=== PATIENT | male | born 1930 | race Caucasian/White ===

== ENCOUNTER 2018-07-14 08:12 | Observation (INO) ==
--- NOTE | 2018-07-14 09:04 | ED ---
HPI General Chief Complaint: Chest Pain Stated Complaint: Chest pain Time Seen by Provider: 07/14/18 08:37 Source: patient, EMS, RN notes reviewed and old records reviewed Mode of arrival: EMS Limitations: other (poor historian) History of Present Illness HPI narrative: 88 y/o male by report noted chest pain this morning. Report was he was panicking when his oxygen was off and so they replaced this and this improved his pain. Patient does not recall this event this morning. He denies any pain currently. He states he is feeling fine. History is limited from patient MD complaint: chest pain Complete Quality Measures for STEMI Alert Patients STEMI Alert: No Related Data Allergies Allergy/AdvReac Type Severity Reaction Status Date / Time No Known Allergies Allergy Unverified 07/14/18 08:18 Review of Systems ROS Unobtainable ROS Unobtainable: other (Very poor historian) [facility] Medical History Medical History Afib (Acute) CHF (congestive heart failure) (Acute) COPD (chronic obstructive pulmonary disease) (Acute) Diabetes (Acute) ESBL (extended spectrum beta-lactamase) producing bacteria infection (Acute) HTN (hypertension) (Acute) Surgical History Surgical History Heart valve replaced (Acute) Social History Social History Second Hand Smoke Exposure: No Smoking Status: Never smoker Tobacco Type: Cigarettes How Often Do You Have a Drink Containing Alcohol: Never Recent Travel in [facility] within the Last 8 Weeks: No Recent Out of Country Travel within the Last 8 Weeks: No Immunization History Tetanus Immunization: Unsure Hx Influenza Vaccine This Season: Yes Exam Narrative Exam Narrative: GENERAL: 88-year-old male in no apparent distress SKIN: Focused skin assessment warm/dry. HEAD: Atraumatic. Normocephalic. EYES: Pupils equal and round. No scleral icterus. No injection or drainage. ENT: No nasal bleeding or discharge. Mucous membranes pink and moist. NECK: Trachea midline. CARDIOVASCULAR: Regular rate and rhythm. RESPIRATORY: No accessory muscle use. Clear to auscultation. Breath sounds equal bilaterally. GASTROINTESTINAL: Abdomen soft, non-tender, nondistended. MUSCULOSKELETAL: No obvious deformities. No clubbing. No cyanosis. NEUROLOGICAL: Awake and alert to name and location. Moves all extremities. Normal speech. Course Reevaluation(s) Reevaluation #1: On paperwork patient is his medical decision maker. Updated about elevated troponin and wanting to stay in the hospital for further care. Given aspirin still pain-free Consultations Consultation #1: Dr. cisneros agrees to admission Initial Documented Vital Signs Temperature 98.2 F 07/14/18 08:19 Pulse Rate 57 L 07/14/18 08:19 Respiratory Rate 18 07/14/18 08:19 Blood Pressure 146/67 H 07/14/18 08:19 Last Documented Vital Signs Temperature 98.2 F 07/14/18 08:19 Pulse Rate 54 L 07/14/18 09:10 Respiratory Rate 16 07/14/18 09:10 Blood Pressure 146/67 H 07/14/18 09:10 Pulse Oximetry 98 07/14/18 08:49 Medical Decision Making MDM Narrative Medical decision making narrative: Given extensive risk factors will check workup and reevaluate. Patient currently pain-free with possible brief episode Medical Screen Exam Complete: Yes Emergency Medical Condition: Yes Differential Diagnosis Differential Diagnosis: Gastritis, anxiety, atypical cardiac Lab Data Lab results reviewed: Yes I reviewed the patient's lab results. Result diagrams: 07/14/18 09:04 07/14/18 09:04 Lab Results 07/14/18 07/14/18 07/14/18 Range/Units 09:04 09:04 09:04 WBC 6.0 (4.0-11.0) th/mm3 RBC 4.25 L (4.50-5.90) mil/mm3 Hgb 12.3 L (13.0-17.0) gm/dL Hct 37.2 L (39.0-51.0) % MCV 87.5 (80.0-100.0) fL MCH 28.9 (27.0-34.0) pg MCHC 33.1 (32.0-36.0) % RDW 15.6 (11.6-17.2) % Plt Count 210 (150-450) th/mm3 MPV 8.4 (7.0-11.0) fL Neut % (Auto) 66.0 (16.0-70.0) % Lymph % (Auto) 21.3 (9.0-44.0) % [place] % (Auto) 8.2 H (0.0-8.0) % Eos % (Auto) 3.9 (0.0-4.0) % Baso % (Auto) 0.6 (0.0-2.0) % Neut # (Auto) 4.0 (1.8-7.7) th/mm3 Lymph # (Auto) 1.3 (1.0-4.8) th/mm3 [place] # (Auto) 0.5 (0.0-0.9) th/mm3 Eos # (Auto) 0.2 (0.0-0.4) th/mm3 Baso # (Auto) 0.0 (0.0-0.2) th/mm3 WBC Differential . Differential Comment Auto diff final PT 11.1 (9.8-11.6) sec INR 1.1 Ratio APTT 24.0 L (24.3-30.1) sec Sodium (136-145) meq/L Potassium (3.5-5.1) meq/L Chloride (98-107) meq/L Carbon Dioxide (21.0-32.0) meq/L Anion Gap (5-15) meq/L BUN (7-18) mg/dL Creatinine (0.60-1.30) mg/dL Estimated GFR (>89) mL/min Random Glucose (74-106) mg/dL Calcium (8.5-10.1) mg/dL Magnesium (1.5-2.5) mg/dL Total Bilirubin (0.2-1.0) mg/dL AST (15-37) U/L ALT (12-78) U/L Alkaline Phosphatase (45-117) U/L Total Creatine Kinase (39-308) U/L Troponin I (0.02-0.05) ng/mL B-Natriuretic Peptide 114 H (0-100) pg/mL Total Protein (6.4-8.2) g/dL Albumin (3.4-5.0) g/dL 07/14/18 Range/Units 09:04 WBC (4.0-11.0) th/mm3 RBC (4.50-5.90) mil/mm3 Hgb (13.0-17.0) gm/dL Hct (39.0-51.0) % MCV (80.0-100.0) fL MCH (27.0-34.0) pg MCHC (32.0-36.0) % RDW (11.6-17.2) % Plt Count (150-450) th/mm3 MPV (7.0-11.0) fL Neut % (Auto) (16.0-70.0) % Lymph % (Auto) (9.0-44.0) % [place] % (Auto) (0.0-8.0) % Eos % (Auto) (0.0-4.0) % Baso % (Auto) (0.0-2.0) % Neut # (Auto) (1.8-7.7) th/mm3 Lymph # (Auto) (1.0-4.8) th/mm3 [place] # (Auto) (0.0-0.9) th/mm3 Eos # (Auto) (0.0-0.4) th/mm3 Baso # (Auto) (0.0-0.2) th/mm3 WBC Differential Differential Comment PT (9.8-11.6) sec INR Ratio APTT (24.3-30.1) sec Sodium 143 (136-145) meq/L Potassium 4.3 (3.5-5.1) meq/L Chloride 106 (98-107) meq/L Carbon Dioxide 28.9 (21.0-32.0) meq/L Anion Gap 8 (5-15) meq/L BUN 24 H (7-18) mg/dL Creatinine 1.49 H (0.60-1.30) mg/dL Estimated GFR 45 L (>89) mL/min Random Glucose 118 H (74-106) mg/dL Calcium 9.2 (8.5-10.1) mg/dL Magnesium 2.1 (1.5-2.5) mg/dL Total Bilirubin 0.8 (0.2-1.0) mg/dL AST 19 (15-37) U/L ALT 17 (12-78) U/L Alkaline Phosphatase 66 (45-117) U/L Total Creatine Kinase 57 (39-308) U/L Troponin I 0.13 H (0.02-0.05) ng/mL B-Natriuretic Peptide (0-100) pg/mL Total Protein 7.3 (6.4-8.2) g/dL Albumin 3.4 (3.4-5.0) g/dL Imaging Data Attestation: I personally reviewed and interpreted this imaging study as follows : Radiologist's impression: Chest X-Ray 07/14/18 08:38 CONCLUSION: There lungs. Discharge Plan Discharge Disposition Patient Disposition: 30 Still Patient Discharge Condition Condition: Stable Discharge Details Diagnosis: Chest pain, Elevated troponin Physicians Team ED Provider: Vangie Robbins Primary Care Provider: Primary Care Ana Mi,No Discharge Instructions Patient Printed Instructions: Chest Pain (ED) Status ED Status: Admitted Observation Patient
--- NOTE | 2018-07-14 09:20 | XR ---
EXAM DATE: 07/14/2018 9:17 AM EDT AGE/SEX: 88 years / Male INDICATIONS: Chest pain starting today CLINICAL DATA: This is the patient's initial encounter. Patient reports that signs and symptoms have been present for 1 day and indicates a pain score of 8/10. MEDICAL/SURGICAL HISTORY: Cardiovascular disease. CABG. Heart valve repair COMPARISON: No prior exams available for comparison. FINDINGS: Cardiomegaly, aortic calcification, sternotomy wires and clips and cardiac valve hardware seen. The l ungs are clear. The osseous structures are intact. CONCLUSION: There lungs. Electronically signed by: Everette Sellers MD 07/14/2018 9:18 AM EDT
[2018-07-14 09:44] LABS: Baso % (Auto) 0.6 % (0.0-2.0); Eos # (Auto) 0.2 th/mm3 (0.0-0.4); Eos % (Auto) 3.9 % (0.0-4.0); Hematocrit 37.2 % (39.0-51.0); Hemoglobin 12.3 gm/dL (13.0-17.0); Lymph # (Auto) 1.3 th/mm3 (1.0-4.8); Lymph % (Auto) 21.3 % (9.0-44.0); Mean Corpuscular HGB Conc 33.1 % (32.0-36.0); Mean Corpuscular Hemoglobin 28.9 pg (27.0-34.0); Mean Corpuscular Volume 87.5 fL (80.0-100.0); Mean Platelet Volume 8.4 fL (7.0-11.0); Mono # (Auto) 0.5 th/mm3 (0.0-0.9); Mono % (Auto) 8.2 % (0.0-8.0); Platelet Count 210 th/mm3 (150-450); Red Blood Count 4.25 mil/mm3 (4.50-5.90); Red Cell Distribution Width 15.6 % (11.6-17.2)
[2018-07-14 09:47] LABS: INR 1.1 Ratio; Prothrombin Time 11.1 sec (9.8-11.6)
[2018-07-14 09:57] LABS: Albumin 3.4 g/dL (3.4-5.0); Anion Gap 8 meq/L (5-15); Aspartate Aminotransferase 19 U/L (15-37); Blood Urea Nitrogen 24 mg/dL (7-18); Calcium 9.2 mg/dL (8.5-10.1); Carbon Dioxide 28.9 meq/L (21.0-32.0); Chloride 106 meq/L (98-107); Glomerular Filtration Rate 45 mL/min (>89); Glucose,Random 118 mg/dL (74-106); Magnesium 2.1 mg/dL (1.5-2.5); Potassium 4.3 meq/L (3.5-5.1); Sodium 143 meq/L (136-145)
[2018-07-14 09:59] LABS: Alanine Aminotransferase 17 U/L (12-78)
[2018-07-14 10:02] LABS: Alkaline Phosphatase 66 U/L (45-117); Creatine Kinase 57 U/L (39-308); Total Protein 7.3 g/dL (6.4-8.2); Troponin I 0.13 ng/mL (0.02-0.05)
[2018-07-14] MEDS ORDERED: Aspirin 325 MG Tablet PO ONE (10:11)
[2018-07-14 11:25] LABS: Bilirubin,Urine Negative (Negative); Clarity,Urine Clear (Clear); Color,Urine Yellow (Yellw/Straw); Glucose,Urine (UA) Negative (Negative); Hyaline Casts,Urine 1 /lpf (0-3); Leukocyte Esterase,Urine Negative (Negative); Mucus,Urine Few /lpf (Occasional); Nitrite,Urine Negative (Negative); Specific Gravity,Urine 1.019 (1.002-1.035)
[2018-07-14] MEDS ORDERED: Acetaminophen 325 MG Tablet PO PRN (13:08)
[2018-07-14] MEDS ORDERED: Bisacodyl 10 MG Supp RECTAL PRN (13:08)
[2018-07-14 14:46] LABS: Troponin I 0.09 ng/mL (0.02-0.05)
--- NOTE | 2018-07-14 15:20 | P.HPIM ---
History of Present Illness Primary Care Physician: No Primary Care Physician History of Present Illness: This is an 88-year-old male with history of hypertension, COPD, diabetes mellitus, atrial fibrillation congestive heart failure presenting to the hospital with chest pain. Per patient, he woke up this morning, having moderate substernal chest pain, described as pressure-like, nonradiating associated with shortness of breath but no nausea, vomiting, or blurring of vision. At this point, chest pain has resolved completely. Patient is a [facility] of a [facility]ci. According to him, he panicked because his oxygen was off. Putting the oxygen back helped his chest pain. Family history: Father had heart problems Review of Systems All other pertinent systems were reviewed and are negative. [facility] - History History Provided By: Patient - Medical History Medical History: Medical History (Last Reviewed 07/14/18 @ 09:08 by Vangie Robbins MD) Afib CHF (congestive heart failure) COPD (chronic obstructive pulmonary disease) Diabetes ESBL (extended spectrum beta-lactamase) producing bacteria infection HTN (hypertension) - Surgical History Surgical History: Surgical History (Last Reviewed 07/14/18 @ 09:08 by Vangie Robbins MD) Heart valve replaced - Tobacco History Second Hand Smoke Exposure: No Tobacco Use In Past 30 Days: No Smoking Status: Never smoker Tobacco Type: Cigarettes - Alcohol History How Often Do You Have a Drink Containing Alcohol: Never - Substance Use History Substance History: No History of Abuse - Travel History Recent Travel in the [place] Within the Last 8 Weeks: No Recent Travel Out of the Country Within the Last 8 Weeks: No - Immunization History Tetanus Immunization: Unsure Hx Influenza Vaccine This Season: Yes Medications and Allergies Active Medications: Active Medications Acetaminophen (Tylenol) 650 mg PO Q4H PRN PRN Reason: Temp > 100.4 Al Hydroxide/Mg Hydroxide (Milk Of Magnesia Liq) 30 ml PO Q12H PRN PRN Reason: Mild Constipation Aspirin (Aspirin) 325 mg PO DAILY GARETH Bisacodyl (Dulcolax Supp) 10 mg RECTAL DAILY PRN PRN Reason: SEVERE CONSITIPATION Lactulose (Lactulose Liq) 30 ml PO DAILY PRN PRN Reason: SEVERE CONSITIPATION Ondansetron HCl (Zofran Inj) 4 mg IV.PUSH Q6H PRN PRN Reason: NAUSEA OR VOMITING Sennosides (Senokot) 17.2 mg PO Q12H PRN PRN Reason: Moderate Constipation Sodium Chloride (Ns Flush) 2 ml IV.FLUSH UNSCH PRN PRN Reason: FLUSH AFTER USING IV ACCESS Allergies Allergy/AdvReac Type Severity Reaction Status Date / Time No Known Allergies Allergy Unverified 07/14/18 08:18 Exam Vital signs: Vital Signs 07/14/18 08:19 07/14/18 08:49 07/14/18 09:10 Temperature 98.2 F Pulse Rate 57 L 54 L Respiratory Rate 18 16 Blood Pressure 146/67 H 146/67 H Pulse Oximetry 98 07/14/18 14:39 Temperature 97.5 F L Pulse Rate 52 L Respiratory Rate 17 Blood Pressure 115/78 Pulse Oximetry 98 Intake & Output 07/13/18 07/14/18 07/14/18 18:59 06:59 18:59 Weight 96.162 kg Narrative: GENERAL: Not in acute distress HEAD: Atraumatic. Normocephalic. EYES: PERRL, full EOMs, no jaundice, nonicteric, pink conjunctivae without injection, moist mucosa ENT: Nose without bleeding, purulent drainage. NECK: Trachea midline, no mass, no obvious thyromegaly. CARDIOVASCULAR: Regular rate and rhythm without murmurs, gallops, or rubs. RESPIRATORY: Clear to auscultation with normal respiratory effort. Breath sounds equal bilaterally. GASTROINTESTINAL: Abdomen soft, normal bowel sounds, non-tender, nondistended. MUSCULOSKELETAL: Extremities without clubbing, cyanosis, or edema. No joint tenderness. INTEGUMENTARY: Warm and dry, no rash of generalized distribution. NEUROLOGICAL: Awake, alert, oriented 3. No obvious cranial nerve deficits. Moves all 4 extremities, muscle strength testing 5 over. No focal neurologic deficits. Results - Labs CBC & Chem 7: 07/14/18 09:04 07/14/18 09:04 Labs: Short CBC 07/14/18 Range/Units 09:04 WBC 6.0 (4.0-11.0) th/mm3 Hgb 12.3 L (13.0-17.0) gm/dL Hct 37.2 L (39.0-51.0) % Plt Count 210 (150-450) th/mm3 BMP 07/14/18 09:04 Sodium 143 Potassium 4.3 Chloride 106 Carbon Dioxide 28.9 BUN 24 H Creatinine 1.49 H Calcium 9.2 Cardiac Enzymes 07/14/18 07/14/18 Range/Units 09:04 14:02 Total Creatine Kinase 57 68 (39-308) U/L Troponin I 0.13 H 0.09 H (0.02-0.05) ng/mL Liver Function 07/14/18 Range/Units 09:04 Total Bilirubin 0.8 (0.2-1.0) mg/dL AST 19 (15-37) U/L ALT 17 (12-78) U/L Alkaline Phosphatase 66 (45-117) U/L Albumin 3.4 (3.4-5.0) g/dL Urine 07/14/18 Range/Units 10:28 Urine Color Yellow (Yellw/Straw) Urine Clarity Clear (Clear) Urine pH 6.0 (5.0-8.5) Ur Specific [place] 1.019 (1.002-1.035) Urine Protein Negative (Neg-Trace) mg/dL Urine Glucose (UA) Negative (Negative) mg/dL - Imaging Impressions Chest X-Ray 07/14/18 08:38 CONCLUSION: There lungs. Caprini VTE Risk Assessment Caprini VTE Risk Assessment: Moderate/High Risk (score >= 2) Caprini Risk Assessment Model: Point Value = 1 Point Value = 2 Point Value = 3 Point Value = 5 Age 41-60 Minor surgery BMI > 25 kg/m2 Swollen legs Varicose veins or History of unexplained or recurrent spontaneous Oral contraceptives or hormone replacement Sepsis (< 1 month) Serious lung disease, including pneumonia (< 1 month) Abnormal pulmonary function Acute myocardial infarction Congestive heart failure (< 1 month) History of inflammatory bowel disease Medical patient at bed rest Age 61-74 Arthroscopic surgery Major open surgery (> 45 min) Laparoscopic surgery (> 45 min) Malignancy Confined to bed (> 72 hours) Immobilizing plaster cast Central venous access Age >= 75 History of VTE Family history of VTE Factor V Leiden Prothrombin [id number] Lupus anticoagulant Anticardiolipin antibodies Elevated serum homocysteine Heparin-induced thrombocytopenia Other congenital or acquired thrombophilia Stroke (< 1 month) Elective arthroplasty Hip, pelvis, or leg fracture Acute spinal cord injury (< 1 month) Prophylaxis Regimen: Total Risk Factor Score Risk Level Prophylaxis Regimen 0-1 Low Early ambulation 2 Moderate Order ONE of the following: *Sequential Compression Device (SCD) *Heparin 5000 units SQ BID 3-4 Higher Order ONE of the following medications: *Heparin 5000 units SQ TID *Enoxaparin/Lovenox 40 mg SQ daily (WT < 150 kg, CrCl > 30 mL/min) *Enoxaparin/Lovenox 30 mg SQ daily (WT < 150 kg, CrCl > 10-29 mL/min) *Enoxaparin/Lovenox 30 mg SQ BID (WT < 150 kg, CrCl > 30 mL/min) AND/OR *Sequential Compression Device (SCD) 5 or more Highest Order ONE of the following medications: *Heparin 5000 units SQ TID (Preferred with Epidurals) *Enoxaparin/Lovenox 40 mg SQ daily (WT < 150 kg, CrCl > 30 mL/min) *Enoxaparin/Lovenox 30 mg SQ daily (WT < 150 kg, CrCl > 10-29 mL/min) *Enoxaparin/Lovenox 30 mg SQ BID (WT < 150 kg, CrCl > 30 mL/min) AND *Sequential Compression Device (SCD) Assessment and Plan - Plan This is an 88-year-old male with history of hypertension, atrial fibrillation, CHF, diabetes mellitus and COPD presenting with chest pain Chest pain-previous history of atrial fibrillation CHF, initial troponin is 0.13 , continue serial troponin and EKG. Initial EKG showed sinus bradycardia, PVCs , ?First-degree AV block. Consult cardiology, his director investor relations is Dr. Kong < ?>. Home medications are not yet reconciled. Will ask RN to reconcile. Continue aspirin, check lipid panel. Diabetes mellitus-sliding scale insulin for now, medications not reconciled yet. CHF-not in exacerbation, restart home meds once reconciled, chest x-ray is unremarkable, BNP is 114. Acute renal failure versus chronic kidney disease-no previous known history of chronic kidney disease, no other creatinine in the system, monitor, recheck BMP tomorrow. COPD-not in exacerbation, DuoNebs as needed. Atrial fibrillation-currently in sinus rhythm, monitor, keep on telemetry. Restart home meds. DVT prophylaxis: Lovenox H&P: Quality - VTE Deep Vein Thrombosis/Pulmonary Embolism Present on Admission: No
[2018-07-14] MEDS ORDERED: Dextrose 50% in Water 50 ML Vial IV.PUSH PRN (15:33)
[2018-07-14] MEDS: Enoxaparin Inj 40 MG/0.4 ML Syringe SQ SCH (16:55)
[2018-07-14] MEDS: Furosemide 20 MG Tablet PO SCH (16:55)
[2018-07-14] MEDS: Escitalopram 10 MG Tablet PO SCH (16:55)
[2018-07-14] MEDS: Finasteride 5 MG Tablet PO SCH (16:55)
[2018-07-14] MEDS: Insulin NovoLOG Aspart Correctional Sugar Inj SQ SCH ×2 (16:58→21:17)
[2018-07-14] MEDS: Sod Chloride 0.9% Inj 1,000 ML IV.CONT SCH (17:36)
--- NOTE | 2018-07-14 17:59 | MB ---
cc: Dick Leblanc MD DATE: 07/14/2018 HISTORY OF PRESENT ILLNESS: Roshan cross 88-year-old gentleman currently residing in a [facility]ci. History of coronary artery disease, status post CABG in 1990, history of atrial fibrillation. He states he takes Coumadin out of the hospital, developed chest pain today after he lost his oxygen. It is reported that he had some sort of panicking reaction to this. Chest pain was relieved with replacement of oxygen. Currently, he is not on oxygen, resting comfortably, in no acute distress. Denies chest pain. Further review of systems is negative for any fever, chills, cough, GI or bleeding, PND, orthopnea, syncope, dizziness, GI or bleeding. PAST MEDICAL HISTORY: Per of history of present illness. Also includes congestive heart failure, COPD, ESBL, and hypertension. He also has a "heart valve replacement." ALLERGIES: NONE. SOCIAL HISTORY: Denies tobacco use. Denies alcohol use. MEDICATIONS IN THE HOSPITAL: Albuterol, aspirin 325 daily, Lipitor 20 mg daily, Lovenox 40 mg subcutaneous daily, Lexapro 10 mg daily, Pepcid 20 mg b.i.d., ferrous sulfate 325 daily, Proscar 5 mg daily, fluticasone, Lasix 20 mg p.o. daily, Neurontin 300 mg p.o. b.i.d., insulin, levothyroxine 88 mcg daily, Remeron 15 mg p.o. at bedtime. PHYSICAL EXAMINATION: VITAL SIGNS: Temperature 97.5, pulse 52, respiratory rate 16, blood pressure 115/78, sats 98% on room air. GENERAL: He is alert and oriented x2 to 3, in no acute distress. NECK: Supple. No JVD. No bruit. CARDIOVASCULAR: S1, S2. No murmurs, rubs or gallops. LUNGS: Coarse bilaterally. ABDOMEN: Soft, nontender, nondistended with positive bowel sounds. EXTREMITIES: Lower extremity edema. LABORATORY DATA: INR is 1.1. 6.0, hemoglobin 12.3, hematocrit 37.2, platelet count 210. Sodium 143, potassium 4.3, chloride 106, bicarbonate 28.9, BUN 24, creatinine 1.49. Troponin was 0.13, followed by 0.09. BNP is 114, Chest x-ray shows clear lungs and his EKG shows sinus bradycardia with left bundle-branch block, nonspecific ST-wave changes. DIAGNOSES: 1. [id number]-QP-remoxwoto myocardial infarction. 2. Decompensated congestive heart failure. 3. Cardiomyopathy. 4. Congestive heart failure. 5. Diabetes mellitus. 6. Left bundle branch block. 7. Sinus bradycardia. 8. Prolonged corrected QT interval equal to 474 milliseconds. 9. Chronic obstructive pulmonary disease. 10. Hypoxia. 11. 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 12. Chronic renal insufficiency. 13. Decompensated congestive heart failure. 14. Anemia. 15. Possible dementia. DISCUSSION: Left heart catheterization is medically necessary due to non-STEMI. High pretest probability for significant ischemic etiology to the patient's symptoms, given his coronary artery bypass graft procedure, which was done 27 years ago. At this point in time, agree with aspirin, Lipitor, GRISELDA inhibitors held due to chronic renal insufficiency. Beta mayra was held due to bradycardia, which is currently asymptomatic. The patient has a CHADS-VASc score equal to at least 5. He states he takes Coumadin at home, but this is not on his preadmit medications list or his admission medication list and his INR is subtherapeutic. This anticoagulation will need to be held anyway for his heart catheterization. Prior to discharge he should be treated with Coumadin or novel oral anticoagulant agent. Dick Leblanc MD AWC/lh/ll , 05:11 PM , 05:19 PM
[2018-07-14] MEDS: Gabapentin 300 MG Capsule PO SCH (21:21)
[2018-07-14] MEDS: Famotidine 20 MG Tablet PO SCH (21:21)
[2018-07-14] MEDS: Mirtazapine 15 MG Tablet PO SCH (21:21)
--- NOTE | 2018-07-14 21:28 | ECG ---
Date Performed: 07/14/2018 Time Performed: 19:39:00 PTAGE: 88 years EKG: SINUS BRADYCARDIA WITH FIRST DEGREE AV BLOCK NONSPECIFIC INTRAVENTRICULAR CONDUCTION DELAY ABNORMAL ECG PREVIOUS TRACING : 07/14/2018 08.30 No significant change from previous tracing noted. DOCTOR: Keanu Barriga Interpretating Date/Time 07/14/2018 21:27:19
--- NOTE | 2018-07-14 21:41 | ECG ---
Date Performed: 07/14/2018 Time Performed: 08:30:57 PTAGE: 88 years EKG: SINUS BRADYCARDIA WITH FIRST DEGREE AV BLOCK WITH OCCASIONAL VENTRICULAR PREMATURE COMPLEXE S NONSPECIFIC INTRAVENTRICULAR CONDUCTION DELAY ABNORMAL ECG NO PREVIOUS TRACING DOCTOR: Keanu Barriga Interpretating Date/Time 07/14/2018 21:40:11
[2018-07-14 21:53] LABS: Troponin I 0.09 ng/mL (0.02-0.05)
[2018-07-15 03:37] LABS: Calcium 8.9 mg/dL (8.5-10.1); Carbon Dioxide 28.8 meq/L (21.0-32.0); Potassium 4.3 meq/L (3.5-5.1)
[2018-07-15 03:43] LABS: Chol/HDL Ratio 2.91 Ratio; HDL Cholesterol 53.1 mg/dL (40.0-60.0); Troponin I 0.1 ng/mL (0.02-0.05)
--- NOTE | 2018-07-15 05:33 | P.PNCA ---
Subjective Interval history: alert in nad Physical Exam Vital signs: Vital Signs 07/14/18 08:19 07/14/18 08:49 07/14/18 09:10 Temperature 98.2 F Pulse Rate 57 L 54 L Respiratory Rate 18 16 Blood Pressure 146/67 H 146/67 H Pulse Oximetry 98 07/14/18 14:39 07/14/18 16:00 07/14/18 20:00 Temperature 97.5 F L 98.1 F 97.8 F Pulse Rate 52 L 87 76 Respiratory Rate 17 18 18 Blood Pressure 115/78 129/76 122/74 Pulse Oximetry 98 96 95 07/15/18 00:00 Temperature 98 F Pulse Rate 51 L Respiratory Rate 18 Blood Pressure 121/75 Pulse Oximetry 95 Intake & Output 07/14/18 07/14/18 07/15/18 06:59 18:59 06:59 Intake Total 1220 / 1220 Output Total 400 / 400 Balance 820 / 820 Weight 96.1 kg Intake: IV 1000 / 1000 NS Inj 1,000 ML @ 100 mls/hr IV 1000 / 1000 .CONT .Q10H GARETH Rx#:[id number] Oral 220 / 220 Output: Urine 400 / 400 Other: # Bowel Movements 0 Assessment and Plan - Assessment (1) CAD (coronary artery disease) Code(s): I25.10 - Atherosclerotic heart disease of [place] coronary artery without angina pectoris Status: Acute (2) NSTEMI (non-ST elevated myocardial infarction) Code(s): I21.4 - Non-ST elevation (NSTEMI) myocardial infarction Status: Acute (3) Afib Code(s): I48.91 - Unspecified atrial fibrillation Status: Acute - Plan 1.) NSTEMI - plan [facility], continue medical management with aspirin 2.) Afib - [id number] score = 5, rec coumadin or noac after cath
[2018-07-15] MEDS: Sod Chloride 0.9% Inj 1,000 ML IV.CONT SCH ×2 (06:07→14:48)
[2018-07-15] MEDS: Levothyroxine 88 MCG Tablet PO SCH (06:35)
[2018-07-15] MEDS: Furosemide 20 MG Tablet PO SCH (10:02)
[2018-07-15] MEDS: Ferrous Sulfate 325 MG Tablet PO SCH (10:02)
[2018-07-15] MEDS: Gabapentin 300 MG Capsule PO SCH ×2 (10:02→20:52)
[2018-07-15] MEDS: Finasteride 5 MG Tablet PO SCH (10:02)
[2018-07-15] MEDS: Escitalopram 10 MG Tablet PO SCH (10:03)
[2018-07-15] MEDS: Famotidine 20 MG Tablet PO SCH ×2 (10:04→20:51)
--- NOTE | 2018-07-15 10:43 | P.PNIM ---
Subjective Interval history: Patient says that chest pain has resolved. Denies any shortness of breath. Denies nausea or vomiting. He is very upset about being stuck for labs repeatedly. Patient reports left first toe chronic ulcer which is being dressed at his facility. Physical Exam Vital signs: Vital Signs 07/14/18 14:39 07/14/18 16:00 07/14/18 20:00 Temperature 97.5 F L 98.1 F 97.8 F Pulse Rate 52 L 87 76 Respiratory Rate 17 18 18 Blood Pressure 115/78 129/76 122/74 Pulse Oximetry 98 96 95 07/15/18 00:00 07/15/18 04:00 07/15/18 08:00 Temperature 98 F 97.4 F L 97.3 F L Pulse Rate 51 L 50 L 68 Respiratory Rate 18 20 18 Blood Pressure 121/75 137/62 133/80 Pulse Oximetry 95 97 100 Intake & Output 07/14/18 07/15/18 07/15/18 18:59 06:59 18:59 Intake Total 1220 / 1220 480 / 480 Output Total 400 / 400 550 / 550 Balance 820 / 820 -70 / -70 Weight 96.1 kg 95.9 kg Intake: IV 1000 / 1000 NS Inj 1,000 ML @ 100 mls/hr IV 1000 / 1000 .CONT .Q10H [facility] Rx#:[id number] Oral 220 / 220 480 / 480 Output: Urine 400 / 400 550 / 550 Other: # Bowel Movements 0 1 Narrative: GENERAL: Patient is alert and oriented 3. SKIN: Warm and dry. HEAD: Normocephalic. EYES: No scleral icterus. No injection or drainage. NECK: Supple, trachea midline. No JVD. CARDIOVASCULAR: Regular rate and rhythm without murmurs, gallops, or rubs. RESPIRATORY: Breath sounds equal bilaterally. No accessory muscle use. GASTROINTESTINAL: Abdomen soft, non-tender, nondistended. MUSCULOSKELETAL: No cyanosis, or edema. Dusky left first toe, small ulcer. No erythema. Dressed. Serous drainage. BACK: Nontender without obvious deformity. No CVA tenderness. Results - Labs CBC & Chem 7: 07/14/18 09:04 07/15/18 02:48 Laboratory Results - last 24 hr 07/14/18 07/14/18 07/14/18 10:28 14:02 20:30 Sodium Potassium Chloride Carbon Dioxide Anion Gap BUN Creatinine Estimated GFR POC Glucose Random Glucose Calcium Total Creatine Kinase 68 60 Troponin I 0.09 H 0.09 H Triglycerides Cholesterol LDL Cholesterol, Calc HDL Cholesterol Cholesterol/HDL Ratio Urine Color Yellow Urine Clarity Clear Urine pH 6.0 Ur Specific [place] 1.019 Urine Protein Negative Urine Glucose (UA) Negative Urine Ketones Negative Urine Occult Blood Negative Urine Nitrate Negative Urine Bilirubin Negative Urine Urobilinogen Less than 2 Ur Leukocyte Esterase Negative Urine RBC Less than 1 Urine WBC 1 Hyaline Casts 1 Urine Mucus Few H Micro UA Comment Culture not ind Ur Microscopic Review Not Reportable Urine Culture Comments Culture not ind 07/14/18 07/15/18 21:17 02:48 Sodium 143 Potassium 4.3 Chloride 107 Carbon Dioxide 28.8 Anion Gap 7 BUN 27 H Creatinine 1.66 H Estimated GFR 39 L POC Glucose 116 H Random Glucose 110 H Calcium 8.9 Total Creatine Kinase 59 Troponin I 0.10 H Triglycerides 224 H Cholesterol 155 LDL Cholesterol, Calc 57 HDL Cholesterol 53.1 Cholesterol/HDL Ratio 2.91 Urine Color Urine Clarity Urine pH Ur Specific [place] Urine Protein Urine Glucose (UA) Urine Ketones Urine Occult Blood Urine Nitrate Urine Bilirubin Urine Urobilinogen Ur Leukocyte Esterase Urine RBC Urine WBC Hyaline Casts Urine Mucus Micro UA Comment Ur Microscopic Review Urine Culture Comments - Imaging Impressions Chest X-Ray 07/14/18 08:38 CONCLUSION: There lungs. Assessment and Plan - Plan This is an 88-year-old male with history of hypertension, atrial fibrillation, CHF, diabetes mellitus and COPD presenting with chest pain //NSTEMI //Chest pain-previous history of atrial fibrillation CHF, initial troponin is 0.13, continue serial troponin and EKG. Initial EKG showed sinus bradycardia, PVCs, ?First-degree AV block. Consult cardiology, his worship leader is Dr. Kong <?>. Home medications are not yet reconciled. Will ask RN to reconcile. Continue aspirin, check lipid panel. = Discussed with cardiology. Plan for cardiac catheterization. Appreciate cardiology assistance. //Diabetes mellitus- = Diabetic diet and insulin sliding scale //Left first toe foot ulcer. Does not appear infected. No systemic signs of infection. Will consult podiatry. //CHF-not in exacerbation, restart home meds once reconciled, chest x-ray is unremarkable, BNP is 114. //Acute renal failure versus chronic kidney disease-no previous known history of chronic kidney disease, no other creatinine in the system, monitor, recheck BMP tomorrow. = Creatinine 1.6. //COPD-not in exacerbation, DuoNebs as needed. //Atrial fibrillation-currently in sinus rhythm, monitor, keep on telemetry. Continue home meds. Cardiology following. Appreciate assistance. //DVT prophylaxis: Lovenox Discussed Condition With: Plodder Operator, nurse, patient Discharge Planning: Pending cardiology clearance.
[2018-07-15 11:04] LABS: Baso % (Auto) 0.6 % (0.0-2.0); Eos # (Auto) 0.3 th/mm3 (0.0-0.4); Eos % (Auto) 5.5 % (0.0-4.0); Hematocrit 34.9 % (39.0-51.0); Hemoglobin 11.9 gm/dL (13.0-17.0); Lymph # (Auto) 1.4 th/mm3 (1.0-4.8); Lymph % (Auto) 28.1 % (9.0-44.0); Mean Corpuscular HGB Conc 34.1 % (32.0-36.0); Mean Corpuscular Hemoglobin 29.3 pg (27.0-34.0); Mean Platelet Volume 7.6 fL (7.0-11.0); Mono # (Auto) 0.5 th/mm3 (0.0-0.9); Mono % (Auto) 9.4 % (0.0-8.0); Neut # (Auto) 2.9 th/mm3 (1.8-7.7); Neut % (Auto) 56.4 % (16.0-70.0); Platelet Count 210 th/mm3 (150-450); Red Blood Count 4.06 mil/mm3 (4.50-5.90); Red Cell Distribution Width 15.2 % (11.6-17.2); White Blood Count 5.1 th/mm3 (4.0-11.0)
[2018-07-15] MEDS: Insulin NovoLOG Aspart Correctional Sugar Inj SQ SCH ×3 (12:53→20:53)
[2018-07-15] MEDS: Aspirin 325 MG Tablet PO SCH (14:46)
[2018-07-15] MEDS: Enoxaparin Inj 40 MG/0.4 ML Syringe SQ SCH (14:49)
[2018-07-15] MEDS: Mirtazapine 15 MG Tablet PO SCH (20:52)
--- NOTE | 2018-07-15 22:32 | MB ---
cc: Elizabeth Douglas DPM DATE: 07/15/2018 REASON FOR CONSULTATION: Left hallux ulcer. HISTORY OF PRESENT ILLNESS: Patient is an 88-year-old male with a history of HTN, COPD, diabetes, atrial fibrillation. Presented to the hospital with chest type pains. No chest pains when he is seen at bedside this afternoon. No shortness of breath, resting comfortably. REVIEW OF SYSTEMS: Per HPI. PAST MEDICAL HISTORY: AFib, CHF, COPD, diabetes, HTN. PAST SURGICAL HISTORY: Heart valve replaced. SOCIAL HISTORY: Denies alcohol use or substance abuse or use. MEDICATIONS: Per HPI. OBJECTIVE: Left hallux with a centralized distal ulcer 2 x 2 mm with a keratotic periwound. He has some proximally purulence distal to the nail plate. There is no lysis of the nail plate. There is no tracking. There is no pain with range of motion. There is no pain on palpation. DP and PT 1/4. ASSESSMENT AND PLAN: 1. Left hallux neuropathic ulcer. 2. Diabetes mellitus with neuropathy. Plan for this patient, local wound care at this facility will do just fine with a topical antibiotic. Offload in a postop shoe and patient can followup as an outpatient with . within a week of discharge. Okay to discharge per Podiatry. Elizabeth Douglas DPM SR/david/ , 08:36 PM , 08:44 PM
[2018-07-16] MEDS: Sod Chloride 0.9% Inj 1,000 ML IV.CONT SCH ×4 (02:48→20:34)
[2018-07-16] MEDS: Levothyroxine 88 MCG Tablet PO SCH (06:13)
[2018-07-16] MEDS: Famotidine 20 MG Tablet PO SCH ×2 (09:56→20:41)
[2018-07-16] MEDS: Aspirin 325 MG Tablet PO SCH (09:56)
[2018-07-16] MEDS: Amiodarone 200 MG Tablet PO SCH (09:56)
[2018-07-16] MEDS: Furosemide 20 MG Tablet PO SCH (09:56)
[2018-07-16] MEDS: Finasteride 5 MG Tablet PO SCH (09:56)
[2018-07-16] MEDS: Ferrous Sulfate 325 MG Tablet PO SCH (09:57)
[2018-07-16] MEDS: Escitalopram 10 MG Tablet PO SCH (09:57)
[2018-07-16] MEDS: Gabapentin 300 MG Capsule PO SCH ×2 (09:58→20:41)
[2018-07-16] MEDS: Insulin NovoLOG Aspart Correctional Sugar Inj SQ SCH ×4 (09:58→20:35)
[2018-07-16] MEDS: Spironolactone 25 MG Tablet PO SCH (09:58)
--- NOTE | 2018-07-16 10:24 | P.PNIM ---
Subjective Interval history: Patient sleeping, wakes up for exam. Says he is feeling all right. Denies any chest pain. Physical Exam Vital signs: Vital Signs 07/15/18 12:00 07/15/18 16:00 07/15/18 17:19 Temperature 97.5 F L Pulse Rate 61 47 L Respiratory Rate 18 18 Blood Pressure 156/81 H 132/66 Pulse Oximetry 99 100 99 07/15/18 20:00 07/16/18 00:00 07/16/18 04:00 Temperature 97.2 F L 97.5 F L 97.5 F L Pulse Rate 54 L 48 L 50 L Respiratory Rate 20 18 18 Blood Pressure 122/68 138/75 112/61 Pulse Oximetry 99 99 98 07/16/18 08:00 07/16/18 09:00 07/16/18 10:11 Temperature 97.3 F L Pulse Rate 47 L 46 L Respiratory Rate 16 Blood Pressure 109/69 Pulse Oximetry 99 99 Intake & Output 07/15/18 07/16/18 07/16/18 18:59 06:59 18:59 Intake Total 700 / 700 240 / 240 Output Total 400 / 400 Balance 700 / 700 -160 / -160 Weight 96.7 kg Intake: IV 700 / 700 NS Inj 1,000 ML @ 100 mls/hr IV 700 / 700 .CONT .Q10H [facility] Rx#:[id number] Oral 240 / 240 Output: Urine 400 / 400 Other: # Voids 1,000 # Bowel Movements 0 Narrative: GENERAL: Sleeping, wakes up for exam. SKIN: Warm and dry. HEAD: Normocephalic. EYES: No scleral icterus. No injection or drainage. NECK: Supple, trachea midline. No JVD. CARDIOVASCULAR: Regular rate and rhythm without murmurs, gallops, or rubs. RESPIRATORY: Breath sounds equal bilaterally. No accessory muscle use. GASTROINTESTINAL: Abdomen soft, non-tender, nondistended. MUSCULOSKELETAL: No cyanosis, or edema. Left toe with dressing clean dry and intact. BACK: Nontender without obvious deformity. No CVA tenderness. Results - Labs CBC & Chem 7: 07/15/18 10:48 07/15/18 02:48 Laboratory Results - last 24 hr 07/15/18 07/15/18 07/15/18 10:48 12:52 16:59 WBC 5.1 RBC 4.06 L Hgb 11.9 L Hct 34.9 L MCV 86.0 MCH 29.3 MCHC 34.1 RDW 15.2 Plt Count 210 MPV 7.6 Neut % (Auto) 56.4 Lymph % (Auto) 28.1 [place] % (Auto) 9.4 H Eos % (Auto) 5.5 H Baso % (Auto) 0.6 Neut # (Auto) 2.9 Lymph # (Auto) 1.4 [place] # (Auto) 0.5 Eos # (Auto) 0.3 Baso # (Auto) 0.0 WBC Differential . Differential Comment Auto diff final POC Glucose 100 92 07/15/18 07/16/18 20:42 08:10 WBC RBC Hgb Hct MCV MCH MCHC RDW Plt Count MPV Neut % (Auto) Lymph % (Auto) [place] % (Auto) Eos % (Auto) Baso % (Auto) Neut # (Auto) Lymph # (Auto) [place] # (Auto) Eos # (Auto) Baso # (Auto) WBC Differential Differential Comment POC Glucose 143 H 104 Assessment and Plan - Plan This is an 88-year-old male with history of hypertension, atrial fibrillation, CHF, diabetes mellitus and COPD presenting with chest pain //NSTEMI //Chest pain-previous history of atrial fibrillation CHF, initial troponin is 0.13, continue serial troponin and EKG. Initial EKG showed sinus bradycardia, PVCs, ?First-degree AV block. Consult cardiology, his chief psychologist is Dr. Kong <?>. Home medications are not yet reconciled. Will ask RN to reconcile. Continue aspirin, check lipid panel. = Discussed with cardiology. Plan for cardiac catheterization. Appreciate cardiology assistance. = 07/16. Follow-up creatinine. //Diabetes mellitus- = Diabetic diet and insulin sliding scale //Left first toe foot ulcer. Does not appear infected. No systemic signs of infection. Will consult podiatry. = Dressing as per podiatry. Appreciate assistance. Follow-up with podiatry as outpatient. //CHF-not in exacerbation, restart home meds once reconciled, chest x-ray is unremarkable, BNP is 114. //Acute renal failure versus chronic kidney disease-no previous known history of chronic kidney disease, no other creatinine in the system, monitor, recheck BMP tomorrow. = Creatinine 1.6. = 07/16. Follow-up creatinine today. //COPD-not in exacerbation, DuoNebs as needed. //Atrial fibrillation-currently in sinus rhythm, monitor, keep on telemetry. Continue home meds. Cardiology following. Appreciate assistance. //DVT prophylaxis: Lovenox Discharge Planning: Pending cardiology clearance.
[2018-07-16] MEDS ORDERED: Iohexol 350 MG/ML 100 ML Vial (for Cath Lab) IVCONTRAST ONE (11:13)
[2018-07-16] MEDS ORDERED: Heparin 10,000 UNITS/10 ML Vial (for IV use) ONE (13:10)
[2018-07-16] MEDS ORDERED: Heparin/NS PF Inj 1,000 ML ONE (13:10)
[2018-07-16] MEDS ORDERED: fentaNYL Citrate Inj 100 MCG/2 ML Ampul ONE (13:23)
--- NOTE | 2018-07-16 14:12 | CATHPROC ---
[employer] [employer] HIS Report Study Information Study Number Admission Scheduled Start Study Start [id number] Jul 14 2018 11:12AM 07/16/2018 Jul 16 2018 1:05PM [facility] Electrophysiology Study Admit Source Facility Department Emergency department [facility] - Occupational Therapist Rehab Manager Physician and Clinical Staff Initial Dick Crowley Manufacturing Team Leader Andres Gonzalez RN Recorder Steff Hernandez,RT(R) Scrub Mitali Xiong ,RT(R) Procedures Performed Procedure Location (Site) Vessel Name Coronary Angiograms LCA Left Coronary Coronary Angiograms RCA Right Coronary Coronary Angiograms PETER-LAD Left Coronary Coronary Angiograms SVG-OM CIRC Coronary Angiograms SVG-RCA Right Coronary L Heart Cath Equipment Time Event Manager Description Size Mfg Part Number Used/Scraped TRANSDUCER, TRUWAVE [id number] 13:18 KEYES ELAINE * Used W/STOCKCOCK *[id number] [id number] *[id number] [id number] *[id number] *[id number] 13:18 [employer] BLANKET,WARM AIR CCL * Used *[id number] 13:18 [employer] PACK, CCL CUSTOM * Used *[id number] 13:18 [employer] PACER PEN, SKIN DUAL W/ RULER * Used *[id number] 13:18 [employer] WIRE, 3MMJ .035 180CM 180CM Used *[id number] 13:18 NAMIC MANIFOLD, 4 PORT * Used *[id number] 13:18 [employer]COMED OMNIPAQUE, 350 MG, 150ML 150ML [id number] 13:18 TERUMO MEDICAL SHEATH, FR4 TERUMO (10CM) FR 4 Used *[id number] History: Current Medications Medication Dosage/Unit Route Frequency Last Date/Time Taken ASA Coumadin Statins (any) History: Allergies Allergy Reaction No Known Allergies History: Risk Factors Family History of Hypertension Dyslipidemia Previous CA Previous Heart Failure Premature CAD Yes No Yes No Yes Prior Valve Prior PCI Prior CABG Prior CABGDate Surgery Yes No Yes 11/11/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 Chronic Lung On Dialysis Diabetes Diabetes Therapy Disease Disease Disease No No No Yes Yes Insulin History: Stress Tests Stress or Imaging Studies Performed No History: Other Disease Selection Items COPD History: Other Current Smoker Method Quit Packs a Day Years Used Pack Years No Cigarettes 27 Years Ago 1 40 40 Labs Hgb (g/dl) Hct (%) WBC (l/cumm) Platelets (thousands) 11.60-17.00 35.00-51.00 4.00-11.00 150.00-450.00 11.9 34.9 5.1 210 Glucose (mg/dl) BUN (mg/dl) Creatinine (mg/dl) BUN:Creatinine (1:x) 74.00-106.00 7.00-18.00 0.50-1.30 10.00-20.00 94 27 1.6 16.9 Na (meq/l) K (meq/l) 136.00-145.00 3.50-5.10 143 4.3 INR (PTT:PT) 0.90-1.10 1.1 Troponin I (ng/ml) CPK (u/l) CPK-MB (ng/ML) 0.02-0.05 26.00-308.00 0.50-3.60 0.1 59 Not Drawn Medication Medication Total Dose (Bolus/Oral) Medication Total Dosage/Unit 1% XYLOCAINE 20 mL FENTANYL 25 mcg VERSED 1 mg Medications (Bolus/Oral) Medication Time Given Dosage/Unit Administered By Reason VERSED 07/16/2018 1:35:55 PM 1 mg Andres Gonzalez 1 mg VERSED given in lab by Andres Gonzalez RN in Left Antecubital via Peripheral IV. Ordered by Dick Cuenca. FENTANYL 07/16/2018 1:36:11 PM 25 mcg Carlos, Nadres 25 mcg FENTANYL given in lab by Andres Gonzalez RN in Left Antecubital via Peripheral IV. Ordered by Dick Rajan. 1% XYLOCAINE 07/16/2018 1:41:04 PM 20 mL Dick Leblanc 20 mL 1% XYLOCAINE given in lab by Dick Leblanc in Right Groin via Subcutaneous. Medication (Drip) Medication Time Given Dosage/Unit Concentration/Unit Diluent (ml) Solution IV Solutions 07/16/2018 1:05:52 PM 50 mL (IV) NaCl .9 IV Solutions given in lab by Andres Gonzalez RN in Left Antecubital via Peripheral IV. Pump/Drip Flow u sing NaCl .9. Initial Case Assessment Cardiovascular Edema Present None Circulatory - Right Pulses Dorsalis Pedis Femoral 1 1 Scale (0,1,2,3,4,d) Circulatory - Left Pulses Dorsalis Pedis Femoral 1 1 Scale (0,1,2,3,4,d) Neurological State Oriented to time-place- Alert Moves all extremities person Chronological Log Time Study Chronological Log 13:00:34 Patient arrived via Bed. 13:05:37 Patient Name, D.O.B, / Armband Verified By R.N. 13:05:38 Consent signed by the physician and the patient and verified by the Occupational Therapist Rehab Manager staff. 13:05:41 Pre-op and post- op instructions given; patient acknowledges understanding of instructions. 13:05:42 Presedation assessment performed by Occupational Therapist Rehab Manager RN. 13:05:46 Patient has been NPO for More than 6Hrs. 13:05:46 Skin Breakdown- bilateral groin rash 13:05:48 Patient Warmer Placed on the Table. 13:05:50 Manav Prominences Protected 13:05:51 A # 20 IV was noted in the Antecubital (left). Grade = 0 13:05:52 IV Solutions given in lab by Andres Gonzalez RN in Left Antecubital via Peripheral IV. Pump/D rip Flow using NaCl .9. 13:05:52 History and physical on the chart or being dictated. Assessment: Initial Case, Edema=None Right Pulses: Yonathan Ped=1, Femoral=1 13:05:54 Left Pulses: Yonathan Ped=1, Femoral=1 Neurological: State=Alert, Ox3, PIMENTEL Vitals capture started with the following parameters, Patient=Adult, Interval=5 min, Initial Pr gyshcs=865 mmHg, 13:08:43 Deflation Rate=5 mmHg, Cuff placed on Left Arm 13:09:20 HR=46 bpm, OCOV=117/81 mmhg, SpO2=98.0 %, Resp=17 B/min 13:14:25 HR=48 bpm, UQDX=774/75 mmhg, SpO2=98.0 %, Resp=14 B/min 13:17:56 Bilateral groins prepped with 2% chlorhexidine, and draped after a 3 minute waiting time. 13:19:14 HR=47 bpm, NIBP=96/71 mmhg, SpO2=98.0 %, Resp=14 B/min 13:24:54 HR=47 bpm, LGJH=099/74 mmhg, SpO2=96.0 %, Resp=11 B/min 13:25:04 Pressure channel 1 zeroed. 13:25:21 MD paged 13:25:36 MD responded 13::54 Reference ECG taken 13:29:22 HR=46 bpm, UFMS=931/81 mmhg, SpO2=98.0 %, Resp=14 B/min 13:34:17 HR=51 bpm, NZXH=196/78 mmhg, SpO2=97.0 %, Resp=13 B/min 13:34:33 MD arrived. 13:35:55 1 mg VERSED given in lab by Andres Gonzalez RN in Left Antecubital via Peripheral IV. Ordered by Dick Leblanc. 13:36:11 25 mcg FENTANYL given in lab by Andres Gonzalez RN in Left Antecubital via Peripheral IV. Ord ered by Dick Leblanc. Time Out. Correct patient, correct procedure, correct physician, labs, allergies, and equipment verified with dental laboratory technician apprentice 13:39:30 team present. Fire risk assesment completed (see hard stop sheet for coding). Time Out Conc urred by and individual staff in procedure. 13:39:57 HR=48 bpm, QZEN=988/75 mmhg, SpO2=98.0 %, Resp=17 B/min 13:41:02 Case Start 13:41:04 20 mL 1% XYLOCAINE given in lab by Dick Leblanc in Right Groin via Subcutaneous. 13:43:39 Access site was Right Femoral Artery. 13:43:43 A SHEATH, FR4 TERUMO (10CM) FR 4 was advanced into the Fem Art (right) using the Percutaneo us technique. A JR 4.0 INFINITI CATHETER FR 4 was advanced over a wire. OMNIPAQUE, 350 MG, 150ML 150ML was us ed for 13:44:05 injections. 13:44:27 HR=48 bpm, VBOH=317/48 mmhg, SpO2=97 %, Resp=16 B/min 13:47:00 The RCA was injected and visualized at various angles. OMNIPAQUE, 350 MG, 150ML 150ML use d. 13:47:11 The SVG-OM was injected and visualized at various angles. OMNIPAQUE, 350 MG, 150ML 150ML u sed. 13:47:20 The SVG-RCA was injected and visualized at various angles. OMNIPAQUE, 350 MG, 150ML 150ML used. Recorded Pressure: Ao, HR=48, Condition=Condition 1 13:48:10 (Aorta) Ao 126/53/79 13:49:26 HR=48 bpm, FMOM=212/67 mmhg, SpO2=97.0 %, Resp=19 B/min 13:50:07 The PETER-LAD was injected and visualized at various angles. OMNIPAQUE, 350 MG, 150ML 150ML used. After removing the current catheter a JL 4.0 INFINITI CATHETER FR 4 was advanced over a WIRE, 3MMJ .035 180CM 13:51:09 180CM. After removing the current catheter a JL 5.0 INFINITI CATHETER FR 4 was advanced over a WIRE, 3MMJ .035 180CM 13:54:21 180CM. 13:54:25 HR=43 bpm, JMXK=042/75 mmhg, SpO2=96.0 %, Resp=17 B/min 13:55:26 The LCA was injected and visualized at various angles. OMNIPAQUE, 350 MG, 150ML 150ML use d. 13:55:49 Catheter was removed 13:56:05 Case End (Physician broke scrub) 13:59:25 Sheath(s) left in place, will be removed in Holding Area 13:59:29 HR=48 bpm, XUJX=048/63 mmhg, SpO2=96.0 %, Resp=20 B/min 13:59:30 Sterile dressing applied to site 13:59:31 No case complications noted. 13:59:45 Cine recording checked. 13:59:48 Holding Area notified. 13:59:53 Bedside Report will be given. 14:00:01 A Left Heart Cath was performed. 14:04:30 HR=56 bpm, HPBP=785/70 mmhg, SpO2=97.0 %, Resp=15 B/min 14:07:30 Patient moved to stretcher 14:08:21 Vitals capture stopped. End Study - Contrast Media Used In Study Contrast Total Opened (mL) Total Used (mL) Total Wasted (mL) Omnipaque 150 75 75 End Study - Maximum Contrast Load Max Contrast Load (mL) 302.1 End Study - Radiation Exposure Fluoro Time (minutes) 4.3 End Study - Patient Disposition Complications Transferred To Interventional Outcome No Telemetry Bed No attempt made
[2018-07-16 17:23] LABS: Calcium 8.7 mg/dL (8.5-10.1); Carbon Dioxide 29.1 meq/L (21.0-32.0); Potassium 4.1 meq/L (3.5-5.1)
[2018-07-16] MEDS: Mirtazapine 15 MG Tablet PO SCH (20:41)
[2018-07-17] MEDS: Sod Chloride 0.9% Inj 1,000 ML IV.CONT SCH (05:15)
[2018-07-17] MEDS: Levothyroxine 88 MCG Tablet PO SCH (05:16)
[2018-07-17] MEDS: Insulin NovoLOG Aspart Correctional Sugar Inj SQ SCH ×2 (09:03→12:32)
[2018-07-17] MEDS: Finasteride 5 MG Tablet PO SCH (09:04)
[2018-07-17] MEDS: Aspirin 325 MG Tablet PO SCH (09:05)
[2018-07-17] MEDS: Famotidine 20 MG Tablet PO SCH (09:05)
[2018-07-17] MEDS: Amiodarone 200 MG Tablet PO SCH (09:05)
[2018-07-17] MEDS: Gabapentin 300 MG Capsule PO SCH (09:05)
[2018-07-17] MEDS: Ferrous Sulfate 325 MG Tablet PO SCH (09:05)
[2018-07-17] MEDS: Furosemide 20 MG Tablet PO SCH (09:05)
[2018-07-17] MEDS: Spironolactone 25 MG Tablet PO SCH (09:06)
[2018-07-17] MEDS: Escitalopram 10 MG Tablet PO SCH (09:06)
--- NOTE | 2018-07-17 10:01 | P.PNIM ---
Subjective Interval history: Patient says he is feeling well. Denies any chest pain shortness of breath. Physical Exam Vital signs: Vital Signs 07/16/18 10:11 07/16/18 12:00 07/16/18 14:43 Temperature Pulse Rate 54 L Respiratory Rate Blood Pressure Pulse Oximetry 99 100 07/16/18 16:00 07/16/18 17:30 07/16/18 20:00 Temperature 98.1 F 97.8 F Pulse Rate 48 L 54 L Respiratory Rate 16 21 Blood Pressure 118/55 L 97/56 L Pulse Oximetry 99 100 97 07/16/18 23:48 07/17/18 00:00 07/17/18 01:44 Temperature 97.6 F Pulse Rate 50 L 54 L Respiratory Rate 21 Blood Pressure 115/58 L Pulse Oximetry 97 95 07/17/18 04:00 07/17/18 08:00 Temperature 97.6 F 97.2 F L Pulse Rate 59 L 48 L Respiratory Rate 20 18 Blood Pressure 135/68 154/70 H Pulse Oximetry 98 100 Intake & Output 07/16/18 07/17/18 07/17/18 18:59 06:59 18:59 Intake Total 1145 / 1145 240 / 240 Output Total 150 / 150 400 / 400 Balance 995 / 995 -160 / -160 Weight 97.5 kg Intake: IV 405 / 405 Heparin/NS PF Inj 1,000 ML @ 0 5 / 5 mls/hr .ROUTE .[facility] Rx#: [id number] NS Inj 1,000 ML @ 100 mls/hr IV 400 / 400 .CONT .Q10H [facility] Rx#:[id number] Oral 240 / 240 240 / 240 Other 500 / 500 Output: Urine 150 / 150 400 / 400 Other: Other Intake Source Saline Solution Date of Last Bowel Movement 07/14/18 # Bowel Movements 0 Narrative: GENERAL: Awake, sitting up on edge of bed eating breakfast. Appears comfortable. SKIN: Warm and dry. HEAD: Normocephalic. EYES: No scleral icterus. No injection or drainage. NECK: Supple, trachea midline. No JVD. CARDIOVASCULAR: Regular rate and rhythm without murmurs, gallops, or rubs. RESPIRATORY: Breath sounds equal bilaterally. No accessory muscle use. GASTROINTESTINAL: Abdomen soft, non-tender, nondistended. MUSCULOSKELETAL: No cyanosis, or edema. Left toe with dressing clean dry and intact. BACK: Nontender without obvious deformity. No CVA tenderness. Results - Labs CBC & Chem 7: 07/15/18 10:48 07/16/18 16:15 Laboratory Results - last 24 hr 07/16/18 07/16/18 07/16/18 16:15 16:18 19:46 Sodium 141 Potassium 4.1 Chloride 106 Carbon Dioxide 29.1 Anion Gap 6 BUN 29 H Creatinine 1.58 H Estimated GFR 42 L POC Glucose 132 H Random Glucose 150 H Calcium 8.7 B-Natriuretic Peptide 83 07/17/18 09:02 Sodium Potassium Chloride Carbon Dioxide Anion Gap BUN Creatinine Estimated GFR POC Glucose 98 Random Glucose Calcium B-Natriuretic Peptide Assessment and Plan - Plan This is an 88-year-old male with history of hypertension, atrial fibrillation, CHF, diabetes mellitus and COPD presenting with chest pain //NSTEMI //Chest pain-previous history of atrial fibrillation CHF, initial troponin is 0.13, continue serial troponin and EKG. Initial EKG showed sinus bradycardia, PVCs, ?First-degree AV block. Consult cardiology, his receiving clerk is Dr. Kong <?>. Home medications are not yet reconciled. Will ask RN to reconcile. Continue aspirin, check lipid panel. = Discussed with cardiology. Plan for cardiac catheterization. Appreciate cardiology assistance. = 07/16. Follow-up creatinine. = 07/17. LDL cholesterol acceptable. Discussed with cardiology. No intervening will disease. Cleared for discharge by cardiology. Appreciate assistance. //Diabetes mellitus- = Diabetic diet and insulin sliding scale = Glucose stable. //Left first toe foot ulcer. Does not appear infected. No systemic signs of infection. Will consult podiatry. = Dressing as per podiatry. Appreciate assistance. Follow-up with podiatry as outpatient. //CHF-not in exacerbation, restart home meds once reconciled, chest x-ray is unremarkable, BNP is 114. //Acute renal failure versus chronic kidney disease-no previous known history of chronic kidney disease, no other creatinine in the system, monitor, recheck BMP tomorrow. = Creatinine 1.6. = 07/16. Follow-up creatinine today. = 07/17. Creatinine stable at 1.6 yesterday. //COPD-not in exacerbation, DuoNebs as needed. //Atrial fibrillation-currently in sinus rhythm, monitor, keep on telemetry. Continue home meds. Cardiology following. Appreciate assistance. //DVT prophylaxis: Lovenox Discharge Planning: Cleared for discharge by cardiology.
--- NOTE | 2018-07-17 10:05 | P.DS ---
Date of admission: 07/14/18 11:12 Primary care physician: No Primary Care Physician Brief History from admission: This is an 88-year-old male with history of hypertension, COPD, diabetes mellitus, atrial fibrillation congestive heart failure presenting to the hospital with chest pain. Per patient, he woke up this morning, having moderate substernal chest pain, described as pressure-like, nonradiating associated with shortness of breath but no nausea, vomiting, or blurring of vision. At this point, chest pain has resolved completely. Patient is a resident of a [place] [facility]. According to him, he panicked because his oxygen was off. Putting the oxygen back helped his chest pain. Family history: Father had heart problems DS: Medications - Discharge Medications Prescriptions: oxycodone-acetaminophen [Percocet] 1 tab PO Q4HR #12 tab DS: Summary Hospital Course: Patient presented with chest pain, troponin up to 0.13 on admission. Patient's chest pain resolved. Cardiology was consulted, patient underwent cardiac catheterization with no intervenable disease. Patient cleared for discharge by cardiology. Patient is to follow-up with cardiology as outpatient For problem based summary from most recent progress note, please see below. This is an 88-year-old male with history of hypertension, atrial fibrillation, CHF, diabetes mellitus and COPD presenting with chest pain //NSTEMI //Chest pain-previous history of atrial fibrillation CHF, initial troponin is 0.13, continue serial troponin and EKG. Initial EKG showed sinus bradycardia, PVCs, ?First-degree AV block. Consult cardiology, his accounting administrative assistant is Dr. Kong <?>. Home medications are not yet reconciled. Will ask RN to reconcile. Continue aspirin, check lipid panel. = Discussed with cardiology. Plan for cardiac catheterization. Appreciate cardiology assistance. = 07/16. Follow-up creatinine. = 07/17. LDL cholesterol acceptable. Discussed with cardiology. No intervening will disease. Cleared for discharge by cardiology. Appreciate assistance. //Diabetes mellitus- = Diabetic diet and insulin sliding scale = Glucose stable. //Left first toe foot ulcer. Does not appear infected. No systemic signs of infection. Will consult podiatry. = Dressing as per podiatry. Appreciate assistance. Follow-up with podiatry as outpatient. //CHF-not in exacerbation, restart home meds once reconciled, chest x-ray is unremarkable, BNP is 114. //Acute renal failure versus chronic kidney disease-no previous known history of chronic kidney disease, no other creatinine in the system, monitor, recheck BMP tomorrow. = Creatinine 1.6. = 07/16. Follow-up creatinine today. = 07/17. Creatinine stable at 1.6 yesterday. //COPD-not in exacerbation, DuoNebs as needed. //Atrial fibrillation-currently in sinus rhythm, monitor, keep on telemetry. Continue home meds. Cardiology following. Appreciate assistance. //DVT prophylaxis: Lovenox Discharge Planning: Cleared for discharge by cardiology. - Time Spent with Patient Total time spent providing and/or coordinating discharge services: Greater than 30 minutes - Quality: VTE Deep Vein Thrombosis/Pulmonary Embolism Present on Admission: No Exam Vital signs: Vital Signs 07/16/18 10:11 07/16/18 12:00 07/16/18 14:43 Temperature Pulse Rate 54 L Respiratory Rate Blood Pressure Pulse Oximetry 99 100 07/16/18 16:00 07/16/18 17:30 07/16/18 20:00 Temperature 98.1 F 97.8 F Pulse Rate 48 L 54 L Respiratory Rate 16 21 Blood Pressure 118/55 L 97/56 L Pulse Oximetry 99 100 97 07/16/18 23:48 07/17/18 00:00 07/17/18 01:44 Temperature 97.6 F Pulse Rate 50 L 54 L Respiratory Rate 21 Blood Pressure 115/58 L Pulse Oximetry 97 95 07/17/18 04:00 07/17/18 08:00 Temperature 97.6 F 97.2 F L Pulse Rate 59 L 48 L Respiratory Rate 20 18 Blood Pressure 135/68 154/70 H Pulse Oximetry 98 100 Intake & Output 07/16/18 07/17/18 07/17/18 18:59 06:59 18:59 Intake Total 1145 / 1145 240 / 240 Output Total 150 / 150 400 / 400 Balance 995 / 995 -160 / -160 Weight 97.5 kg Intake: IV 405 / 405 Heparin/NS PF Inj 1,000 ML @ 0 5 / 5 mls/hr .ROUTE .STK-MED ONE Rx#: [id number] NS Inj 1,000 ML @ 100 mls/hr IV 400 / 400 .CONT .Q10H [facility] Rx#:[id number] Oral 240 / 240 240 / 240 Other 500 / 500 Output: Urine 150 / 150 400 / 400 Other: Other Intake Source Saline Solution Date of Last Bowel Movement 07/14/18 # Bowel Movements 0 Results Procedures completed during hospitalization: Cardiac catheterization. Please see report. Labs on day of discharge: Labs from last 24 hours 07/17/18 07/16/18 07/16/18 09:02 19:46 16:18 Sodium Potassium Chloride Carbon Dioxide Anion Gap BUN Creatinine Estimated GFR POC Glucose 98 132 H Random Glucose Calcium B-Natriuretic Peptide 83 07/16/18 16:15 Sodium 141 Potassium 4.1 Chloride 106 Carbon Dioxide 29.1 Anion Gap 6 BUN 29 H Creatinine 1.58 H Estimated GFR 42 L POC Glucose Random Glucose 150 H Calcium 8.7 B-Natriuretic Peptide - Impressions ITS Impressions Chest X-Ray 07/14/18 08:38 CONCLUSION: There lungs. Discharge Plan - Discharge Disposition Patient Disposition: Discharge to SNF - Discharge Condition Condition: Stable - Discharge Order Discharge Orders: Discharge Order (Routine); Ordered 07/17/18 Ordered By: Danny Bills - Discharge Details Anticipated Discharge Date: 07/17/18 - Physicians Team Primary Care Provider: Primary Care Physici,No Attending Provider: Danny Bills Other Providers: Dick Leblanc MD ; Elizabeth Douglas DPM ; [facility]
--- NOTE | 2018-07-17 12:41 | P.PNCA ---
Subjective Interval history: asleep in nad Physical Exam Vital signs: Vital Signs 07/16/18 14:43 07/16/18 16:00 07/16/18 17:30 Temperature 98.1 F Pulse Rate 48 L Respiratory Rate 16 Blood Pressure 118/55 L Pulse Oximetry 100 99 100 07/16/18 20:00 07/16/18 23:48 07/17/18 00:00 Temperature 97.8 F 97.6 F Pulse Rate 54 L 50 L Respiratory Rate 21 21 Blood Pressure 97/56 L 115/58 L Pulse Oximetry 97 97 95 07/17/18 01:44 07/17/18 04:00 07/17/18 08:00 Temperature 97.6 F 97.2 F L Pulse Rate 54 L 59 L 47 L Respiratory Rate 20 18 Blood Pressure 135/68 154/70 H Pulse Oximetry 98 100 07/17/18 11:36 07/17/18 12:00 Temperature 97.4 F L Pulse Rate 48 L Respiratory Rate 19 Blood Pressure 130/61 Pulse Oximetry 98 98 Intake & Output 07/16/18 07/17/18 07/17/18 18:59 06:59 18:59 Intake Total 1145 / 1145 240 / 240 Output Total 150 / 150 400 / 400 Balance 995 / 995 -160 / -160 Weight 97.5 kg Intake: IV 405 / 405 Heparin/NS PF Inj 1,000 ML @ 0 5 / 5 mls/hr .ROUTE .STK-MED ONE Rx#: [id number] NS Inj 1,000 ML @ 100 mls/hr IV 400 / 400 .CONT .Q10H [facility] Rx#:[id number] Oral 240 / 240 240 / 240 Other 500 / 500 Output: Urine 150 / 150 400 / 400 Other: Other Intake Source Saline Solution Date of Last Bowel Movement 07/14/18 # Bowel Movements 0 Assessment and Plan - Assessment (1) CAD (coronary artery disease) Code(s): I25.10 - Atherosclerotic heart disease of [place] coronary artery without angina pectoris Status: Acute (2) NSTEMI (non-ST elevated myocardial infarction) Code(s): I21.4 - Non-ST elevation (NSTEMI) myocardial infarction Status: Acute (3) Afib Code(s): I48.91 - Unspecified atrial fibrillation Status: Acute - Plan 1.) NSTEMI - 3/3 grafts patent, rec medical man, f/u Dr Kong 2.) Afib - [id number] score = 5, rec coumadin or noac after cath, d/w Dr Bills
--- NOTE | 2018-07-24 08:46 | MA ---
cc: Dick Leblanc MD DATE: 07/16/2018 PROCEDURE PERFORMED: Left heart catheterization, coronary angiography, saphenous vein angiography. INDICATIONS OF PROCEDURE: The patient was brought to the cardiac catheterization laboratory, prepped and draped in the usual sterile fashion, 10 mL of 1% lidocaine was used to locally anesthetize the right common femoral artery. A 4-Togolese sheath was placed in right common femoral artery, 4-[place]og[place] JR4 and JL5 catheters were used to perform left and right coronary angiography, saphenous vein angiography, PETER angiography. 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 Fluoroscopically appears to be aligned coaxially with the LV outflow tract. The right coronary artery is dominant and occluded proximally. The obtuse marginal vessel is a small vessel, probably 1.5 mm in diameter. There is retrograde filling back to the proximal left circumflex vessel. Vein graft to the right coronary artery is widely patent. It is very tortuous in the distal segment. It appears to have probably 120 degree angulation into the distal right coronary artery. Just beyond the graft insertion site, there appears to be a long 90% stenosis. The distal right is a reference vessel diameter of 2.5 mm. The right PDA is a small reference vessel diameter of 1.0 mm with no significant disease angiographically. The right posterolateral artery reference vessel diameter is 3.0 mm with no significant disease angiographically. The PETER to the LAD is widely patent. [place] LAD is nontransapical, reference vessel diameter of 2.25 mm at the graft insertion site, tapering to 2.0, then distally 0.5 mm. There is retrograde filling of the LAD, filling a small to medium size diagonal vessel, reference vessel diameter of 2.25 mm. There is no competitive flow or flow seen proximal to this diagonal vessel. The left main coronary artery has a distal 30-40% stenosis. The left circumflex vessel appears to have diffuse disease in the proximal segment, it is a 1-1.5 mm vessel, it is occluded in the mid proximal segment. Ramus intermedius vessel is a large vessel, reference vessel diameter of approximately 3.5 mm approaching the apex. LAD is occluded after the first diagonal artery. First diagonal artery is a small vessel, has ostial disease up to 60% angiographically. CONCLUSION: 1. Angiographically severe 3-vessel coronary artery disease in a right dominant system as detailed above. 2. Three of 3 grafts patent. 3. Non-ST elevation myocardial infarction, [place] [employer] class IV angina. Suspect that the culprit lesion is the right coronary artery just beyond the graft insertion site. However, the graft just proximal to the graft insertion site is highly tortuous and there is approximately 120 degree angulation from the vein graft into the right coronary artery. 4. As the patient is currently pain free I recommend medical management. One could consider complex PCI of the right coronary artery through the vein graft; however, it would be difficult due to the vessel, the graft tortuosity, and again, the 120 degree angulation of the vein graft attachment site to the right coronary artery. Dick Leblanc MD AWC/ch , 02:13 PM , 02:23 PM
== END 2018-07-17 13:00 ==
LOC: NEPE 08:12 → NEDA 08:12 → N04 14:47
PROVIDERS: ADMIT Internal Medicine; ATTEND Internal Medicine